=== PATIENT | male | born 1960 | race Hispanic/Latino ===

== ENCOUNTER → 2020-06-19 | Outpatient (CLI) | payer OTHER ==
[~2020-06-19] MED LIST: ASPI-556 PO; ATOR10TA69 PO; LOSA1TAB54 PO; METO25TA6 PO
== END | disposition home or self-care (01) ==
LOC: OIH 10:25
PROVIDERS: ATTEND Family Medicine
DX: M47.816 Spondylosis without myelopathy or radiculopathy, lumbar region (principal); M48.061 Spinal stenosis, lumbar region without neurogenic claudication; M25.559 Pain in unspecified hip; M25.78 Osteophyte, vertebrae
CPT/HCPCS: 72100